=== PATIENT | male | born 1990 | race Caucasian/White ===

== ENCOUNTER 2019-10-13 17:50 | Emergency (ER) | payer BC, OTHER, SELFPAY ==
[2019-10-13] MEDS ORDERED: diphenhydrAMINE 50 MG/ML VIAL ONE (18:02)
[2019-10-13] MEDS ORDERED: Morphine 2 MG/ML SYRINGE ONE ×2 (18:03→18:51)
[2019-10-13 18:08] LABS: #Basophils 0.2 thou/uL (0.0-0.2); #Eosinphils 0.4 thou/uL (0.0-0.7); #Lymphocytes 4.9 thou/uL (1.20-3.40); #Monocytes 0.7 thou/uL (0.11-0.59); #Neutrophils 4.4 thou/uL (1.40-6.50); %Basophils 1.7 % (0.0-1.0); %Eosinophils 3.7 % (0.0-10.0); %Lymphocytes 46.5 % (21.0-51.0); %Monocytes 6.6 % (0.0-10.0); %Neutrophils 41.5 % (42.0-75.0); Hemoglobin 13.3 g/dL (14.0-18.0); Mean Corpuscular HGB CONC 33.5 g/dL (32.0-36.0); Mean Corpuscular Hemoglobin 30.2 pg (27.0-31.0); Mean Corpuscular Volume 90.2 fL (78.0-98.0); Mean Platelet Volume 7.9 fL (7.4-10.4); Platelet Count 327 thou/uL (130-400); RBC Distribution Width 11.3 % (11.5-14.5); Red Blood Cell (RBC) Count 4.42 mill/uL (4.70-6.10); White Blood Cell (WBC) Count 10.6 thou/uL (4.8-10.8)
[2019-10-13 18:25] LABS: ALT (SGPT) 79 U/L (8-55); AST (SGOT) 65 U/L (5-34); Albumin 4.9 g/dL (3.5-5.0); Alkaline Phosphatase 80 U/L (40-110); Anion Gap 21 mmol/L (10-20); BUN (Urea Nitrogen) 13 mg/dL (8.9-20.6); Bilirubin, Total 0.2 mg/dL (0.2-1.2); Calc. Creatinine Clearance 0 mL/min (70-130); Calcium 9.4 mg/dL (7.8-10.44); Carbon Dioxide 21 mmol/L (22-29); Chloride 100 mmol/L (98-107); Estimated GFR-MDRD 77; Globulin 3.2 g/dL (2.4-3.5); Glucose 113 mg/dL (70-105); Potassium 3.6 mmol/L (3.5-5.1); Protein, Total 8.1 g/dL (6.0-8.3); Sodium 138 mmol/L (136-145)
[2019-10-13] MEDS ORDERED: Sodium Chloride 0.9% 1,000 ML ONE ×2 (18:32→18:33)
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
[2019-10-13] MEDS ORDERED: Adacel (T-DAP) 0.5 ML SYRINGE ONE (18:34)
[2019-10-13] MEDS ORDERED: Promethazine HCl 25 MG/ML VIAL ONE (18:47)
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
== END 2019-10-13 19:25 | disposition short-term general hospital (02) ==
LOC: NAV ERS 17:50
DX: S81.012A Laceration without foreign body, left knee, initial encounter (principal); V86.59XA Driver of other special all-terrain or other off-road motor vehicle injured in nontraffic accident, initial encounter
CPT/HCPCS: 36415; 80053; 85025; 86900; 86901; 90715; J1200; J2270; J2550; J7050

== ENCOUNTER 2019-10-14 13:31 | Emergency (ER) | payer BC ==
[2019-10-14] MEDS ORDERED: Morphine 4 MG/ML VIAL ONE (13:55)
[2019-10-14] MEDS ORDERED: diphenhydrAMINE 50 MG/ML VIAL ONE (13:55)
[2019-10-14] MEDS ORDERED: Sodium Chloride 0.9% 1,000 ML ONE ×2 (13:55→15:01)
[2019-10-14] MEDS ORDERED: Ondansetron PF 4 MG/2 ML Vial ONE (13:57)
[2019-10-14 14:37] LABS: #Basophils 0.1 thou/uL (0.0-0.2); #Lymphocytes 1.9 thou/uL (1.20-3.40); #Monocytes 1.1 thou/uL (0.11-0.59); #Neutrophils 7.5 thou/uL (1.40-6.50); %Basophils 1.1 % (0.0-1.0); %Eosinophils 0.4 % (0.0-10.0); %Lymphocytes 17.8 % (21.0-51.0); %Monocytes 10.2 % (0.0-10.0); %Neutrophils 70.5 % (42.0-75.0); Hemoglobin 11.2 g/dL (14.0-18.0); Mean Corpuscular Hemoglobin 30.5 pg (27.0-31.0); Mean Corpuscular Volume 89.7 fL (78.0-98.0); Mean Platelet Volume 7.7 fL (7.4-10.4); Platelet Count 237 thou/uL (130-400); RBC Distribution Width 11.1 % (11.5-14.5); Red Blood Cell (RBC) Count 3.68 mill/uL (4.70-6.10); White Blood Cell (WBC) Count 10.6 thou/uL (4.8-10.8)
[2019-10-14 14:47] LABS: Anion Gap 22 mmol/L (10-20); Globulin 2.9 g/dL (2.4-3.5)
[2019-10-14 14:53] LABS: ALT (SGPT) 56 U/L (8-55); AST (SGOT) 30 U/L (5-34); Albumin 4.6 g/dL (3.5-5.0); Alkaline Phosphatase 80 U/L (40-110); BUN (Urea Nitrogen) 12 mg/dL (8.9-20.6); Bilirubin, Total 0.7 mg/dL (0.2-1.2); Calc. Creatinine Clearance 0 mL/min (70-130); Calcium 9.4 mg/dL (7.8-10.44); Carbon Dioxide 17 mmol/L (22-29); Chloride 100 mmol/L (98-107); Estimated GFR-MDRD 77; Glucose 122 mg/dL (70-105); Potassium 3.6 mmol/L (3.5-5.1); Protein, Total 7.5 g/dL (6.0-8.3); Sodium 135 mmol/L (136-145)
[2019-10-14] MEDS ORDERED: Morphine 2 MG/ML SYRINGE ONE (15:00)
[2019-10-14] MEDS ORDERED: Sodium Chloride 0.9% 250 ML 250 ML ONE (15:47)
[2019-10-14] MEDS ORDERED: Sodium Chloride 0.9% 100 ML ONE (15:47)
[2019-10-14] MEDS ORDERED: Piperacillin/Tazobactam 3.375 GM VIAL ONE (15:47)
== END 2019-10-14 16:16 | disposition short-term general hospital (02) ==
LOC: NAV ERS 13:31
DX: M79.605 Pain in left leg (principal); R60.0 Localized edema; Z79.891 Long term (current) use of opiate analgesic; V86.99XA Unspecified occupant of other special all-terrain or other off-road motor vehicle injured in nontraffic accident, initial encounter
CPT/HCPCS: 80053; 83605; 85025; 87040; 96361; 96365; 96375; 96376; J1200; J2270; J2405; J2543; J3370; J3490; J7050

== ENCOUNTER 2022-07-06 11:02 | Emergency (ER) | payer BC ==
[2022-07-06 11:41] LABS: Bilirubin Moderate (Negative); Blood, Urine Negative (Negative); Clarity Clear (Clear); Glucose, Urine (Dipstick) Negative (Negative); Ketone, Urine > or equal to 80 mg/dL (Negative); Leukocyte Negative (Negative); Nitrite Negative (Negative); Protein, Urine (Dipstick) 100 mg/dL (Neg-Trace)
[2022-07-06 11:44] LABS: Bacteria/HPF None Seen HPF (None Seen); Squamous Epithelial 0-3 HPF (0-3); WBC/HPF None Seen HPF (0-3)
[2022-07-06] MEDS ORDERED: Sodium Chloride 0.9% 1,000 ML ONE ×2 (12:03→13:03)
[2022-07-06] MEDS ORDERED: Ondansetron PF 4 MG/2 ML Vial ONE (12:03)
[2022-07-06] MEDS ORDERED: Ketorolac Tromethamine 30 MG/ML VIAL ONE (12:03)
[2022-07-06 12:22] LABS: #Basophils 0.1 thou/uL (0.0-0.2); #Lymphocytes 1.7 thou/uL (1.20-3.40); #Monocytes 1.5 thou/uL (0.11-0.59); #Neutrophils 11.8 thou/uL (1.40-6.50); %Basophils 0.5 % (0.0-1.0); %Eosinophils 0.2 % (0.0-10.0); %Lymphocytes 11.3 % (21.0-51.0); %Monocytes 9.8 % (0.0-10.0); %Neutrophils 78.2 % (42.0-75.0); Hemoglobin 15.2 g/dL (14.0-18.0); Mean Corpuscular HGB CONC 33.8 g/dL (32.0-36.0); Mean Corpuscular Hemoglobin 31.6 pg (27.0-31.0); Mean Corpuscular Volume 93.5 fl (78.0-98.0); Mean Platelet Volume 7.3 fL (7.4-10.4); Platelet Count 231 10x3/uL (130-400); Red Blood Cell (RBC) Count 4.81 mill/uL (4.70-6.10); White Blood Cell (WBC) Count 15.1 10x3/uL (4.8-10.8)
[2022-07-06 12:30] LABS: ALT (SGPT) 29 U/L (8-55); AST (SGOT) 33 U/L (5-34); Albumin 4.7 g/dL (3.5-5.0); Alkaline Phosphatase 81 U/L (40-110); Anion Gap 17 mmol/L (10-20); BUN (Urea Nitrogen) 7 mg/dL (8.9-20.6); Bilirubin, Total 1.3 mg/dL (0.2-1.2); Calc. Creatinine Clearance 0 mL/min (70-130); Calcium 10.1 mg/dL (7.8-10.44); Carbon Dioxide 24 mmol/L (22-29); Chloride 96 mmol/L (98-107); Estimated GFR 104; Globulin 3.4 g/dL (2.4-3.5); Glucose 124 mg/dL (70-105); Potassium 4.3 mmol/L (3.5-5.1); Protein, Total 8.1 g/dL (6.0-8.3); Sodium 133 mmol/L (136-145)
[2022-07-06] MEDS ORDERED: HYDROmorphone 0.5 MG/0.5 ML SYRINGE ONE (13:03)
[2022-07-06 13:52] LABS: SARS-CoV-2 NAA Rapid Test Not Detected (NotDetected)
== END 2022-07-06 13:35 | disposition short-term general hospital (02) ==
LOC: NAV ERS 11:02
DX: R10.31 Right lower quadrant pain (principal); E86.0 Dehydration; Z20.822 Contact with and (suspected) exposure to COVID-19; Z87.891 Personal history of nicotine dependence; D72.829 Elevated white blood cell count, unspecified
CPT/HCPCS: 80053; 81003; 81015; 83605; 85025; 87086; 96361; 96374; 96375; J1170; J1885; J2405; J7050; U0002